=== PATIENT | male | born 1980 | race Caucasian/White ===

== ENCOUNTER 2023-02-13 21:32 | Emergency (ER) | payer MEDICAID, OTHER ==
[2023-02-13] MEDS ORDERED: Diphtheria,Pertussis(Acell),Tetanus Vaccine 0.5 ML Syringe IM ONE (22:02)
[2023-02-13] MEDS ORDERED: HYDROmorphone 1 MG/ML Syringe IM ONE (22:02)
[2023-02-13] MEDS ORDERED: ceFAZolin 1 GM Vial IM ONE (22:03)
[2023-02-13] MEDS ORDERED: Water For Injection, Sterile 20 ML ONE (22:43)
[2023-02-13] MEDS ORDERED: oxyCODONE 5 MG Tab PO ONE (23:40)
== END 2023-02-14 00:19 ==
LOC: JP.ED 21:32
DX: S68.120A Partial traumatic metacarpophalangeal amputation of right index finger, initial encounter (principal); Z72.0 Tobacco use; Z23 Encounter for immunization; W22.09XA Striking against other stationary object, initial encounter
CPT/HCPCS: 73140; 87635; 90471; 90715; 96372; 99283; A9270; J0690; J1170; U0002